=== PATIENT | female | born 1970 | race Caucasian/White ===

== ENCOUNTER 2017-07-07 15:14 | Emergency (ER) | payer SELFPAY ==
[~2017-07-07] VITALS: Ht 162.6 cm; Wt 81.0 kg
[2017-07-07] MEDS ORDERED: GABA-529 PO (15:25)
[2017-07-07] MEDS ORDERED: DIVA500T PO (15:25)
[2017-07-07 16:37] LABS: BASOPHILS % 0.2 % (0.0-2.0); HEMATOCRIT. 34.2 % (36.0-48.0); HEMOGLOBIN. 11.9 g/dL (12.0-16.0); LYMPHOCYTES % 8.2 % (20.0-50.0); MEAN CORPUSCULAR HEMOGLOBIN 31.1 pg (28.0-32.0); MEAN CORPUSCULAR VOLUME 89.6 fL (81.0-99.0); MEAN PLATELET VOLUME 6.4 fl (7.4-10.4); MONOCYTES % 14.6 % (2.0-8.0); PLATELET 173 x1000/uL (130-400); RED BLOOD CELL COUNT 3.82 mill/uL (4.2-5.4); RED CELL DISTRIBUTION WIDTH 12.3 % (11.6-14.6)
[2017-07-07 16:40] LABS: HCG SCREEN NEGATIVE
[2017-07-07 16:42] LABS: CHLORIDE 100 mEq/L (98-107)
[2017-07-07] MEDS ORDERED: ACETAMINOPHEN 325MG TABLET PO ONE (16:45)
[2017-07-07 16:46] LABS: ETHANOL BLOOD < 10 mg/dL
[2017-07-07 18:15] VITALS: BP 135/86
== END 2017-07-07 18:20 | disposition home or self-care (01) ==
LOC: ER 15:39
DX: S02.2XXA Fracture of nasal bones, initial encounter for closed fracture (principal); M79.7 Fibromyalgia; F41.9 Anxiety disorder, unspecified; W01.0XXA Fall on same level from slipping, tripping and stumbling without subsequent striking against object, initial encounter; Y93.89 Activity, other specified; Y99.8 Other external cause status; Y92.89 Other specified places as the place of occurrence of the external cause
CPT/HCPCS: 36415; 80053; 80307; 80329; 84703; 85025; 99284; G0482